=== PATIENT | female | born 1985 | race Caucasian/White ===

== ENCOUNTER 2025-03-21 02:14 | Outpatient (CLI) | payer MEDICARE, SELFPAY ==
--- NOTE | 2025-03-21 07:15 | DI.US_ITS ---
Exam(s) US NEEDLE LOCAL OTHER WO RAD EXAM: US NEEDLE LOCAL OTHER WO RAD CLINICAL HISTORY: right-sided enlarged cervical lymph node,ULTRASOUND GUIDED BX,R59.0. COMPARISON: No exams were available for comparison TECHNIQUE: Ultrasound was provided for Dr. Nails for guidance with performing lymph node biopsy. FINDINGS: Please see procedure note for details. DATA REPOSITORY:
--- NOTE | 2025-03-21 11:45 | LYM_PTH ---
PATIENT: Macrina Harvey LOC: [facility] U#:[id number] AGE/SX: 39/F ROOM: RE03/21/[address]: Rachel Hammonds : 1985 BED: DIS: 03/21/2025 SPEC #: [id number] RECD: 03/21/25 12:02 STATUS: HARPREET REQ #: [id number] KOKO: 03/21/25 11:[address]: Romain Nails DEPT: Surgical Specimen RECD BY: Meli Sexton ENTERED: 03/21/25 12:04 SP TYPE: LYM OTHR DR: Halie Barros Britney Tissues: 1 - FLOW CYTOMETRY NODE/TISSUE Procedures: FLOW CYTOMETRY LYMPHOMA PNL Comments: [id number] (FLOW CYTOMETRY)
--- NOTE | 2025-03-21 11:45 | PAPNONF_PTH ---
PATIENT: Marcina Harvey LOC: [facility] U#:[id number] AGE/SX: 39/F ROOM: RE03/21/[address]: Rachel Hammnods : 1985 BED: DIS: 03/21/2025 SPEC #: [id number] RECD: 03/21/25 11:57 STATUS: HARPREET REQ #: [id number] KOKO: 03/21/25 11:[address]: Romain Nails DEPT: [facility] Cytology RECD BY: Meli Sexton ENTERED: 03/21/25 11:58 SP TYPE: BYRON HUMMEL DR: Halie Barros Britney Tissues: 1 - BODY FLUID CYTO-FINE NEEDLE ASPIRATE-[facility] Procedures: BODY FLUID CYTO-FINE NEEDLE ASPIRATE-[facility] Comments: [id number] (PATH FNA CONSULT) (REFRIGERATED)
--- NOTE | 2025-03-21 11:45 | W.PROCNOTE ---
Date of service: 03/21/25 Time of Service: 11:45 Procedure Note Date of procedure: 03/21/25 Procedure: Ultrasound-guided FNA, right zone 2 lymph node, pathology present Surgeon/Proceduralist/Physician: Romain Nails Procedure Diagnosis: Right cervical lymphadenopathy Procedure Indications: The patient has a right sided zone two 4 cm lymph node that is asymptomatic, and nonpalpable. Options were explained to the patient regarding further management when this failed to resolve. She wished to proceed with the above. Risks including bleeding, infection, and need for further treatment were discussed at length. Written consent was obtained. The below was then performed. Procedure Description: The patient was positioned in supine position with her head turned to the left. She was prepped and draped in appropriate fashion and ultrasound used to localize the enlarged lymph node. 2% lidocaine with 1/100,000 epinephrine was injected into the skin and subcutaneous tissues overlying the lymph node and then using ultrasound for guidance, a 25 gauge needle was carefully introduced into the lymph node and used to collect sample. Lymph node contents were verified by pathology and then 2 additional passes were made for flow cytometry. Bleeding was minimal and self-limited. A sterile dressing was applied. The patient tolerated procedure well. She was then allowed to sit, stand, and ambulate. Her vital signs remained stable. She will remove the bandage in a couple of hours and not replace it. She will call with any signs of infection. She will call if she does not hear from me with regard to pathology within the next 7 days. Further care will depend upon findings. She had no further questions. She is comfortable with this plan.
== END 2025-03-21 02:34 ==
LOC: DI 02:14
PROVIDERS: PCP Nurse Practitioner; Visit Provider Registered Nurse Maternal Newborn
DX: R59.0 Localized enlarged lymph nodes (principal)
CPT/HCPCS: 10005; 76942; 88104; 88184; 88185